=== PATIENT | female | born 1950 | race Caucasian/White ===

== ENCOUNTER 2020-11-27 16:20 | Emergency (ER) | payer SELFPAY ==
[2020-11-27 17:18] LABS: BASOPHIL 0.6 % (0-2); HGB 11.9 g/dl (12.5-16.0); LYMPHOCYTE 16.8 % (15-48); MCH 28.5 pg (25.0-31.0); MCHC 31.3 g/dL (32.0-36.0); MCV 90.9 fL (78.0-100.0); MONOCYTE 7.4 % (0-12); MPV 9.8 fL (6.0-9.5); NRBC 0; PLT 168 K/uL (150-400); RBC 4.18 M/uL (4.20-5.40); RDW 13.3 % (11.5-14.0)
[2020-11-27 17:47] LABS: ALBUMIN 3.5 g/dL (3.4-5.0); BILIRUBIN - TOTAL 0.4 mg/dL (0.2-1.0); CREATININE 0.61 mg/dL (0.51-0.95); GLOBULIN (CALCULATION) 3.3 g/dL; POTASSIUM 3.6 mmol/L (3.5-5.1); TOTAL PROTEIN 6.8 g/dL (6.4-8.2)
[2020-11-27] MEDS ORDERED: ONDANSETRON ODT4 MG PO (18:12)
== END 2020-11-27 19:25 | disposition home or self-care (01) ==
LOC: FER 16:20
PROVIDERS: Emergency Medicine
DX: R11.2 Nausea with vomiting, unspecified (principal); F32.9 Major depressive disorder, single episode, unspecified; Z79.899 Other long term (current) drug therapy
CPT/HCPCS: 36415; 80053; 85025; 99284

== ENCOUNTER 2021-11-27 14:53 | Emergency (ER) | payer MEDICARE ==
[~2021-11-27 14:53] MED LIST: ONDANSETRON ODT4 MG PO
[2021-11-27 15:44] LABS: BASOPHIL 0.4 % (0-2); EOSINOPHIL 0.4 % (0-7); HCT 38.4 % (37.0-47.0); HGB 12.3 g/dl (12.5-16.0); LYMPHOCYTE 18.3 % (15-48); MCH 29.1 pg (25.0-31.0); MCV 90.8 fL (78.0-100.0); MONOCYTE 8.4 % (0-12); MPV 10.4 fL (6.0-9.5); NEUTROPHIL 72.2 % (41-80); NRBC 0; PLT 177 K/uL (150-400); RBC 4.23 M/uL (4.20-5.40); RDW 14.2 % (11.5-14.0); WBC 6.7 K/uL (4.0-10.5)
[2021-11-27 15:47] LABS: INR 1.13 (0.9-1.2); PROTHROMBIN TIME 13.9 SECONDS (11.8-13.4); PTT 32.7 SECONDS (24.4-34.7)
[2021-11-27 16:19] LABS: ALBUMIN 3.6 g/dL (3.4-5.0); BILIRUBIN - TOTAL 0.5 mg/dL (0.2-1.0); BUN/CREAT RATIO (CALC) 17.1 RATIO; CREATININE 0.7 mg/dL (0.51-0.95); GLOBULIN (CALCULATION) 3.4 g/dL; POTASSIUM 3.5 mmol/L (3.5-5.1)
[2021-11-27 16:35] LABS: CKMB 0.5 ng/mL (0.0-3.6)
[2021-11-27 17:08] LABS: CORONAVIRUS 2019 SARS-COV-2 NEGATIVE (NEGATIVE); INFLUENZA A NAA NEGATIVE (NEGATIVE)
[2021-11-27] MEDS ORDERED: LEVAQUIN500 MG PO (19:01)
== END 2021-11-28 12:29 | disposition home or self-care (01) ==
LOC: FER 14:53
PROVIDERS: Emergency Medicine
DX: J18.9 Pneumonia, unspecified organism (principal); I10 Essential (primary) hypertension; Z20.822 Contact with and (suspected) exposure to COVID-19
CPT/HCPCS: 36415; 70450; 71045; 80053; 80061; 82550; 82553; 83874; 84484; 85025; 85610; 85730; 93005; J0456; J0696; J7050; Q9967; U0002

== ENCOUNTER 2021-11-30 18:29 | Emergency (ER) | payer MEDICARE ==
[~2021-11-30 18:29] MED LIST changes: +LEVAQUIN500 MG PO
[2021-11-30 19:28] LABS: BASOPHIL 0.8 % (0-2); HCT 39.4 % (37.0-47.0); HGB 12.7 g/dl (12.5-16.0); LYMPHOCYTE 22.4 % (15-48); MCHC 32.2 g/dL (32.0-36.0); MONOCYTE 7.6 % (0-12); MPV 10.3 fL (6.0-9.5); NEUTROPHIL 67.1 % (41-80); NRBC 0; PLT 204 K/uL (150-400); RBC 4.38 M/uL (4.20-5.40); WBC 7.8 K/uL (4.0-10.5)
[2021-11-30 19:44] LABS: ALBUMIN 3.7 g/dL (3.4-5.0); BILIRUBIN - TOTAL 0.7 mg/dL (0.2-1.0); BUN/CREAT RATIO (CALC) 13.9 RATIO; CREATININE 0.72 mg/dL (0.51-0.95); GLOBULIN (CALCULATION) 3.5 g/dL; POTASSIUM 4.2 mmol/L (3.5-5.1); TOTAL PROTEIN 7.2 g/dL (6.4-8.2)
[2021-11-30 19:44] LABS: BILIRUBIN NEGATIVE (NEGATIVE); BLOOD 1+ Ery/uL (NEGATIVE); CLARITY CLEAR (CLEAR); COLOR YELLOW (YELLOW); GLUCOSE (U) NORMAL (NORMAL); LEUKOCYTES NEGATIVE Leu/uL (NEGATIVE); NITRITE NEGATIVE (NEGATIVE); PROTEIN NEGATIVE (NEGATIVE); SPECIFIC GRAVITY 1.025 (1.001-1.030)
[2021-11-30 19:51] LABS: BACTERIA TRACE
[2021-11-30 20:44] LABS: CORONAVIRUS 2019 SARS-COV-2 NEGATIVE (NEGATIVE); INFLUENZA A NAA NEGATIVE (NEGATIVE)
== END 2021-12-01 08:17 | disposition other institution (70) ==
LOC: FER 18:29
PROVIDERS: Internal Medicine
DX: I25.3 Aneurysm of heart (principal); I71.2 Thoracic aortic aneurysm, without rupture; I10 Essential (primary) hypertension; Z20.822 Contact with and (suspected) exposure to COVID-19; Z88.8 Allergy status to other drugs, medicaments and biological substances
CPT/HCPCS: 36415; 70450; 71045; 71275; 80053; 81001; 83880; 84145; 84484; 85025; 93005; J1644; Q9967; U0002